=== PATIENT | male | born 1950 | race Caucasian/White ===

== ENCOUNTER → 2017-10-14 | Outpatient (CLI) | payer BC, MEDICARE ==
[~2017-10-14] MED LIST: NASONEX NASAL; PANT40TA25 PO; SYMBICORT PO; TAMS0.4C32 PO; VENTOLIN PO
== END | disposition home or self-care (01) ==
LOC: RAH 09:25
PROVIDERS: ATTEND Internal Medicine
DX: R13.10 Dysphagia, unspecified (principal); R44.9 Unspecified symptoms and signs involving general sensations and perceptions; K21.9 Gastro-esophageal reflux disease without esophagitis
CPT/HCPCS: G8996; G8997; G8998; 74230; 92611